=== PATIENT | male | born 1980 | race Caucasian/White ===

== ENCOUNTER 2021-12-31 17:07 | Emergency (ER) | payer SELFPAY ==
[~2021-12-31] VITALS: Ht 175.3 cm; Wt 81.2 kg
[2021-12-31] MEDS: LORazepam 1 MG TABLET PO ONE (18:00)
--- NOTE | 2021-12-31 18:01 | PHYS DOC ---
Past History Additional Past Medical Histor: PTAD (JERRY LINK APRN) Past Medical History: Anxiety, Depression, Schizophrenia (JACEK GRAHAM MD) Past Surgical History: No Surgical History (JERRY LINK APRN) Alcohol Use: None (JERRY LINK APRN) General Adult EDM: Chief Complaint: ANXIETY/PANIC ATTACK HPI: HPI: Patient is a 41-year-old male who presents to the emergency department for paranoia. Patient was recently discharged from [facility] and he was placed on olanzapine 5 mg nightly mirtazapine 30 mg. He reports that he recently stopped taking his medications but restarted them 2 days ago. Patient reports history of anxiety and PTSD. He denies any suicidal or homicidal ideation, visual or auditory hallucinations. (JERRY LINK APRN) Review of Systems: Review of Systems: Constitutional: Denies fever or chills Eyes: Denies change in visual acuity HENT: Denies nasal congestion or sore throat Respiratory: Denies cough or shortness of breath Cardiovascular: Denies chest pain or edema GI: Denies abdominal pain, nausea, vomiting, bloody stools or diarrhea : Denies dysuria Musculoskeletal: Denies back pain or joint pain Integument: Denies rash Neurologic: Denies headache, focal weakness or sensory changes Endocrine: Denies polyuria or polydipsia Lymphatic: Denies swollen glands Psychiatric: See HPI (JERRY LINK APRN) Allergies: Allergies: Allergies Coded Allergies Type Severity Reaction Last Updated Verified No Known Drug Allergies 12/31/21 No (JERRY LINK APRN) Physical Exam: PE: Constitutional: Well developed, well nourished, no acute distress, non-toxic appearance. [] HENT: Normocephalic, atraumatic, bilateral external ears normal, oropharynx moist, no oral exudates, nose normal. [] Eyes: PERRL, EOMI, conjunctiva normal, no discharge. [] Neck: Normal range of motion, no stridor Cardiovascular:Heart rate regular rhythm, no murmur [] Lungs & Thorax: Normal work of breathing, no tachypnea Abdomen: Soft and flat Skin: Warm, dry, no erythema, no rash. [] Back: No tenderness, range of motion Extremities: No tenderness, no cyanosis, no clubbing, ROM intact, no edema. [] Neurologic: Alert and oriented X 3, normal motor function, normal sensory function, no focal deficits noted. [] Psychologic: Anxious appearing (JERRY LINK APRN) Current Patient Data: Vital Signs: Vital Signs Date Time Temp Pulse Resp B/P (MAP) Pulse Ox O2 Delivery O2 Flow Rate FiO2 12/31/21 17:52 98.1 65 16 134/77 (96) 99 Room Air (JERRY LINK APRN) EKG: EKG: [] (JERRY LINK APRN) Radiology/Procedures: Radiology/Procedures: [] (JERRY LINK APRN) Heart Score: C/O Chest Pain: N/A Risk Factors: Risk Factors: DM, Current or recent (<one month) smoker, HTN, HLP, family history of CAD, obesity. Risk Scores: Score 0 - 3: 2.5% MACE over next 6 weeks - Discharge Home Score 4 - 6: 20.3% MACE over next 6 weeks - Admit for Clinical Observation Score 7 - 10: 72.7% MACE over next 6 weeks - Early Invasive Strategies (JERRY LINK APRN) Course & Med Decision Making: Course & Med Decision Making Pertinent Labs and Imaging studies reviewed. (See chart for details) [] Patient resents to the emergency department for paranoia. Patiently recently started 2 medications few days ago. Patient denies suicidal or homicidal ideation. Patient is seeking resources. His anxiety was treated in the emergency department he was evaluated by member the psychiatric assessment team. 2102 patient was evaluated by member the psychiatric assessment team. When she entered patient's room he is sleeping. 2145: patient was evaluated by the PAT and he reports not feeling safe at home at the [facility]. He reports paranoia worse after starting his zyprexa. PAT member attempting to place patient at inpatient psych center at this time. Lab work for medical clearance ordered. I discussed patients case with supervising physician and he will assume patient care at this time due to shift change. (JERRY LINK APRN) Course & Med Decision Making See [facility] chart for details prior shift change. See PAT assessment for details. Possible placement in AM. COVID PCR pending.- Rapid COVID is negative. Pt. sleeping most of night. Pt. re-endorsed to Dr. Mcgill at shift change 0600/ . Impression: 1. Depression 2. Anxiety 3. Suicidal Ideation 4. Paranoid delusions 5. Drug Screen + Methamphetamine 6. Hx. Non-compliance with Meds. 7. Schizoaffective Disorder (JACEK GRAHAM MD) Dragon Disclaimer: Dragon Disclaimer: This electronic medical record was generated, in whole or in part, using a voice recognition dictation system. (JERRY LINK APRN) Attending Co-Sign The patient was seen and interviewed as well as examined at the bedside. The chart was reviewed. The case was discussed. Agree with the plan of care. (JACEK GRAHAM MD) Attending Co-Sign The patient was seen and interviewed as well as examined at the bedside. The chart was reviewed. The case was discussed. Agree with the plan of care. (ELIZABETH MCGILL DO) Departure Departure: Impression: Primary Impression: Paranoia Referrals: PCP,NO (PCP) Dragon Disclaimer This chart was dictated in whole or in part using Voice Recognition software in a busy, high-work load, and often noisy Emergency Department environment. It ma y contain unintended and wholly unrecognized errors or omissions. (JACEK GRAHAM MD) Dragon Disclaimer This chart was dictated in whole or in part using Voice Recognition software in a busy, high-work load, and often noisy Emergency Department environment. It may contain unintended and wholly unrecognized errors or omissions. (JACEK GRAHAM MD) Attending Signature Attending Signature I have participated in the care of this patient and I have reviewed and agree with all pertinent clinical information above including history, exam, and recommendations. (JACEK GRAHAM MD) Attending Signature Attending Signature I have participated in the care of this patient and I have reviewed and agree with all pertinent clinical information above including history, exam, and recommendations. (JACEK GRAHAM MD) JERRY LINK APRN Dec 31, 2021 18:01 JACEK GRAHAM MD Dec 31, 2021 22:00 ELIZABETH MCGILL DO Jan 02, 2022 06:04
[2021-12-31 22:03] LABS: BASO # 0.1 x10^3/uL (0.0-0.2); BASO % 1 % (0-3); EOS # 0.3 x10^3/uL (0.0-0.7); EOS % 3 % (0-3); HEMATOCRIT 43.7 % (39.0-53.0); HEMOGLOBIN 14.9 g/dL (13.0-17.5); LYMPH # 2.2 x10^3/uL (1.0-4.8); LYMPH % 27 % (24-48); MEAN CORPUSCULAR HEMOGLOBIN 32 pg (25-35); MEAN CORPUSCULAR HGB CONC 34 g/dL (31-37); MEAN CORPUSCULAR VOLUME 92 fL (79-100); MONO # 0.7 x10^3/uL (0.0-1.1); MONO % 8 % (0-9); NEUT % 61 % (31-73); PLATELET COUNT 223 x10^3/uL (140-400); RED BLOOD COUNT 4.75 x10^6/uL (4.30-5.70); RED CELL DISTRIBUTION WIDTH 13.7 % (11.5-14.5); WHITE BLOOD COUNT 8.1 x10^3/uL (4.0-11.0)
[2021-12-31 22:10] LABS: CALCIUM 8.7 mg/dL (8.5-10.1); CREATININE 0.9 mg/dL (0.7-1.3); POTASSIUM 4.2 mmol/L (3.5-5.1)
[2021-12-31 23:13] LABS: BARBITURATES NEG (NEG); BENZODIAZEPINES NEG (NEG); CANNABINOIDS NEG (NEG); COCAINE NEG (NEG); METHADONE NEG (NEG); OPIATES NEG (NEG); PHENCYCLIDINE NEG (NEG)
[2021-12-31 23:18] LABS: AMPHETAMINE/METHAMPHETAMINE POS (NEG)
[2021-12-31 23:38] LABS: BACTERIA,URINE FEW /HPF (0-FEW); CLARITY,URINE CLEAR; COLOR,URINE YELLOW; GLUCOSE,URINE NEG (NEG); NITRITE,URINE NEG (NEG); RBC,URINE 0 /HPF (0-2); SQUAMOUS EPITHELIAL CELL,UR FEW /LPF; UROBILINOGEN,URINE 0.2 mg/dL (0.2 mg/dL); WBC,URINE OCC /HPF (0-4)
[2022-01-01] MEDS: LORazepam 1 MG TABLET PO ONE (12:17)
[2022-01-01 20:05] VITALS: BP 130/80
== END 2022-01-01 21:45 | disposition home or self-care (01) ==
LOC: ER 17:07
DX: F41.1 Generalized anxiety disorder (principal); F32.9 Major depressive disorder, single episode, unspecified; R45.851 Suicidal ideations; F03.90 Unspecified dementia, unspecified severity, without behavioral disturbance, psychotic disturbance, mood disturbance, and anxiety; F25.9 Schizoaffective disorder, unspecified; Z20.822 Contact with and (suspected) exposure to COVID-19
CPT/HCPCS: 36415; 80048; 80307; 81001; 85025; 87426; 99283; U0003